=== PATIENT | female | born 1995 | race Caucasian/White ===

== ENCOUNTER 2017-03-23 00:45 | Emergency (ER) | payer MEDICAID ==
[~2017-03-23] VITALS: Ht 167.6 cm; Wt 70.0 kg
[~2017-03-23 00:45] MED LIST: CEPH-443 PO; PREN1TAB62 PO
[2017-03-23 00:51] VITALS: Ht 167.6 cm; Wt 70.0 kg
[2017-03-23 03:36] LABS: URINE BLOOD (Dip) POC Trace-intact (NEGATIVE)
--- NOTE | 2017-03-23 03:42 | ERD ---
ER Documentation Chief Complaint Date/Time DATE: 03/23/17 TIME: 03:40 Chief Complaint BLOOD IN URINE AND VAGINAL DISCHRAGE FOR PAST FEW DAYS HPI 21-year-old female presents here in emergency department for complaints of vaginal bleeding for 3 days, smokes 3 packs per day. Patient also complains of blood in the urine. Patient denies any dysuria. Patient states she had last her menstruation 10 days ago. Patient denies any problems with irregular menstruation before. Patient denies any flank pain. Patient denies being . Patient denies any dizziness. Patient denies any nausea or vomiting. Patient denies any pelvis pain. ROS All systems reviewed and are negative except as per history of present illness. Medications Home Meds Active Scripts Ferrous Sulfate* (Ferrous Sulfate*) 325 Mg Tabec, 325 MG PO BID, #60 TAB Prov:DOM HAYES CUSTOMER CONSULTING MANAGER 03/23/17 Ibuprofen* (Motrin*) 600 Mg Tab, 600 MG PO Q6H Y for PAIN AND OR ELEVATED TEMP, #30 TAB Prov:DOM HAYES CUSTOMER CONSULTING MANAGER 03/23/17 Cephalexin* (Keflex*) 500 Mg Capsule, 500 MG PO BID for 5 Days, CAP Prov:PILAR ZARATE PA-C 04/12/16 Reported Medications Vit-Iron Fumarate-FA ( Vitamin Tablet) 1 Each Tablet, 1 TAB PO DAILY, TAB 01/11/16 [none] Unknown Strength No Conflict Check 11/06/15 Allergies Allergies: Coded Allergies: No Known Allergies (Verified Allergy, Unknown, 03/25/16) PMhx/Soc Medical and Surgical Hx: pt denies Medical Hx, pt denies Surgical Hx History of Surgery: No Anesthesia Reaction: No Hx Neurological Disorder: No Hx Respiratory Disorders: No Hx Cardiac Disorders: No Hx Psychiatric Problems: No Hx Miscellaneous Medical Probl: No Hx Alcohol Use: No Hx Substance Use: No Hx Tobacco Use: No Smoking Status: Never smoker FmHx Family History: No coronary disease, No diabetes, No other Physical Exam Vitals Vital Signs Date Time Temp Pulse Resp B/P Pulse Ox O2 Delivery O2 Flow Rate FiO2 03/23/17 00:51 97.9 68 18 116/68 99 Physical Exam GENERAL: The patient is well developed and appropriate for usual state of health, in no apparent distress. CHEST: Clear to auscultation bilaterally. There are no rales, wheezes or rhonchi. HEART: Regular rate and rhythm. No murmurs, clicks, rubs or gallops. No S3 or S4. ABDOMEN: Soft, nontender and nondistended. Good bowel sounds. No rebound or guarding. No gross peritonitis. No gross organomegaly or masses. No Bingham sign or McBurney point tenderness. BACK: No midline or flank tenderness. EXTREMITIES: Equal pulses bilaterally. There is no peripheral clubbing, cyanosis or edema. No focal swelling or erythema. Full range of motion. Grossly neurovascularly intact. NEURO: Alert and oriented. Cranial nerves 2-12 intact. Motor strength in all 4 extremities with 5/5 strength. Sensation grossly intact. Normal speech and gait. SKIN: There is no apparent rash or petechia. The skin is warm and dry. HEMATOLOGIC AND LYMPHATIC: There is no evidence of excessive bruising or lymphedema. No gross cervical, axillary, or inguinal lymphadenopathy. Result Diagram: 03/23/17 0414 Results 24 hrs Laboratory Tests Test 03/23/17 03:30 03/23/17 03:38 03/23/17 04:14 Urine Color LT. YELLOW Urine Clarity CLEAR Urine pH 7.0 Urine Specific Douglas 1.015 Urine Ketones NEGATIVE Urine Nitrite NEGATIVE Urine Bilirubin NEGATIVE Urine Urobilinogen 1.0 E.U./dL Urine Leukocyte Esterase TRACE Urine Microscopic RBC 0-2/HPF Urine Microscopic WBC 2-5/HPF Urine Squamous Epithelial Cells MANY Urine Bacteria OCCASIONAL Urine Mucus OCCASIONAL Urine Hemoglobin TRACE Urine Glucose NEGATIVE% Urine Total Protein NEGATIVE Bedside Urine pH (LAB) 8.5 Bedside Urine Protein (LAB) Negative Bedside Urine Glucose (UA) Negative Bedside Urine Ketones (LAB) Negative Bedside Urine Blood Trace-intact Bedside Urine Nitrite (LAB) Negative Bedside Urine Leukocyte Esterase (L Trace White Blood Count 11.710^3/ul Red Blood Count 4.6910^6/ul Hemoglobin 14.3g/dl Hematocrit 41.7% Mean Corpuscular Volume 88.9fl Mean Corpuscular Hemoglobin 30.5pg Mean Corpuscular Hemoglobin Concent 34.3g/dl Red Cell Distribution Width 11.9% Platelet Count 79767^3/UL Mean Platelet Volume 9.2fl Neutrophils % 72.2% Lymphocytes % 18.7% Monocytes % 6.2% Eosinophils % 2.2% Basophils % 0.4% Nucleated Red Blood Cells % 0.0/100WBC Neutrophils # 8.410^3/ul Lymphocytes # 2.210^3/ul Monocytes # 0.710^3/ul Eosinophils # 0.310^3/ul Basophils # 0.110^3/ul Nucleated Red Blood Cells # 0.010^3/ul Beta HCG, Quantitative < 2.4mIU/ml PROCEDURE: ULTRASOUND PELVIS CLINICAL INDICATION: 21-year-old female with vaginal bleeding. TECHNIQUE: Multiple sonographic images of the pelvis were obtained utilizing a transabdominal and endovaginal technique. The images were reviewed on a PACS workstation. COMPARISON: None. FINDINGS: The uterus is visualized and measures 9.0 x 4.2 x 5.6 cm. The endometrial echo complex is within normal limits and measures 11.6 mm. There is mild left adnexal free fluid. The right ovary has a normal echotexture and measures 3.1 x 2.3 x 2.2 cm. The left ovary has a normal echotexture and measures cm. There is flow identified within the ovaries bilaterally. No adnexal masses are noted. IMPRESSION: Mild left adnexal free fluid. .Edgar Nelson MD, MD Date Time Electronically viewed and signed by .Edgar Nelson MD, MD on 03/23/2017 05:44 .M/ CC: DOM HAYES CUSTOMER CONSULTING MANAGER Procedures/MDM Medical Decision Making: Patients vaginal bleeding is most likely consistent of dysfunctional uterine bleeding. Patient does not show any evidence of hypovolemic shock. Patients hemoglobin and hematocrit is stable. There is low suspicion for ectopic . POLO results show no , no ovarian torsion or ovarian cyst. BetaHCG Quantitative negative for There is no signs of symptoms of dehydration. There is low suspicion for sepsis. Patient appears well and is hemodynamically stable. Disposition: Home. Condition: Stable Disposition: Ibuprofen, ferrous sulfate Instructions: Patient is advised to do bed rest, avoid heavy lifting, and avoid having sex until cleared by OB doctor. Patient is advised to follow up with gynecology for evaluation. Patient is advised that is symptoms are worst, severe bleeding, dizziness, severe abdominal pain, fever, worst signs and symptoms to return to the emergency department immediately. Departure Diagnosis: Primary Impression: Dysfunctional uterine bleeding Condition: Stable Patient Instructions: Dysfunctional Uterine Bleeding Additional Instructions: Patient is advised to do bed rest, avoid heavy lifting, and avoid having sex until cleared by OB doctor. Patient is advised to follow up with gynecology for evaluation. Patient is advised that is symptoms are worst, severe bleeding, dizziness, severe abdominal pain, fever, worst signs and symptoms to return to the emergency department immediately. DOM HAYES NP March 23, 2017 03:42
[2017-03-23 04:23] LABS: ADD UMIC YES; URINE BILIRUBIN (Dip) NEGATIVE (NEGATIVE); URINE BLOOD (Dip) TRACE (NEGATIVE); URINE COLOR LT. YELLOW (YELLOW); URINE GLUCOSE (Dip) NEGATIVE (NEGATIVE); URINE KETONES (Dip) NEGATIVE (NEGATIVE); URINE LEUKOCYTE ESTERASE (Dip) TRACE (NEGATIVE); URINE NITRITE (Dip) NEGATIVE (NEGATIVE); URINE TOTAL PROTEIN (Dip) NEGATIVE (NEGATIVE); URINE UROBILINOGEN (Dip) 1.0 E.U./dL (0.1-1.0)
[2017-03-23 04:35] LABS: BACTERIA,URINE OCCASIONAL; MUCUS,URINE OCCASIONAL; SQUAMOUS EPITHELIAL CELL,UR MANY; URINE RBCS 0-2 /HPF (0)
[2017-03-23 04:43] LABS: ADD SCAN DIFF NO
[2017-03-23 04:45] LABS: BASOPHIL # 0.1 10^3/ul (0.0-0.1); BASOPHILS % 0.4 % (0.0-2.0); EOSINOPHILS # 0.3 10^3/ul (0.0-0.5); EOSINOPHILS % 2.2 % (0.0-7.0); HEMATOCRIT 41.7 % (37.0-47.0); HEMOGLOBIN 14.3 g/dl (12.0-16.0); LYMPHOCYTES # 2.2 10^3/ul (0.8-2.9); LYMPHOCYTES % 18.7 % (15.0-51.0); MEAN CORPUSCULAR HEMOGLOBIN 30.5 pg (29.0-33.0); MEAN CORPUSCULAR HGB CONC 34.3 g/dl (32.0-37.0); MEAN CORPUSCULAR VOLUME 88.9 fl (82.0-101.0); MEAN PLATELET VOLUME 9.2 fl (7.4-10.4); MONOCYTE # 0.7 10^3/ul (0.3-0.9); MONOCYTES % 6.2 % (0.0-11.0); NEUTROPHIL # 8.4 10^3/ul (1.6-7.5); NEUTROPHILS % 72.2 % (39.0-77.0); PLATELET COUNT 309 10^3/UL (140-415); RED BLOOD COUNT 4.69 10^6/ul (4.20-5.40); RED CELL DISTRIBUTION WIDTH 11.9 % (11.5-14.5); WHITE BLOOD COUNT 11.7 10^3/ul (4.8-10.8)
--- NOTE | 2017-03-23 05:44 | RADRPT ---
PROCEDURE: ULTRASOUND PELVIS CLINICAL INDICATION: 21-year-old female with vaginal bleeding. TECHNIQUE: Multiple sonographic images of the pelvis were obtained utilizing a transabdominal and endovaginal technique. The images were reviewed on a PACS workstation. COMPARISON: None. FINDINGS: The uterus is visualized and measures 9.0 x 4.2 x 5.6 cm. The endometrial echo complex is within nor mal limits and measures 11.6 mm. There is mild left adnexal free fluid. The right ovary has a normal echotexture and measures 3.1 x 2.3 x 2.2 cm. The left ovary has a normal echotexture and measures cm. There is flow identified within the ovaries bilaterally. No adnexal masses are noted. IMPRESSION: Mild left adnexal free fluid. .Edgar Nelson MD, MD Date Time Electronically viewed and signed by .Edgar Nelson MD, MD on 03/23/2017 05:44 .M/
[2017-03-23] MEDS ORDERED: FER325 PO (05:47)
[2017-03-23] MEDS ORDERED: IBUP-1542 PO (05:47)
[2017-03-23 06:16] VITALS: BP 119/67; PULSE 58; RESP 16
== END 2017-03-23 06:17 | disposition home or self-care (01) ==
LOC: FTE 00:45
DX: N93.8 Other specified abnormal uterine and vaginal bleeding (principal); F17.210 Nicotine dependence, cigarettes, uncomplicated; R10.2 Pelvic and perineal pain
CPT/HCPCS: 76830; 76856; 81001; 84702; 85025; P9612; Z7502; 81003